=== PATIENT | male | born 1985 | race Caucasian/White ===

== ENCOUNTER 2018-06-02 21:54 | Emergency (ER) | payer OTHER ==
[~2018-06-02] VITALS: Ht 180.3 cm; Wt 92.7 kg
[2018-06-02 21:56] VITALS: BP 159/107
[2018-06-02] MEDS ORDERED: LIDOCAINE-MPF 2%, 2ML ONE ×2 (22:18→22:19)
[2018-06-02] MEDS ORDERED: LIDOCAINE-MPF 2%, 2ML INFIL ONE (22:30)
== END 2018-06-02 23:04 | disposition home or self-care (01) ==
LOC: ED 23:01
DX: L03.031 Cellulitis of right toe (principal); L60.0 Ingrowing nail
CPT/HCPCS: 11730; 11750; 99284